=== PATIENT | female | born 1990 | race Two or more races ===

== ENCOUNTER 2024-10-27 19:40 | Inpatient (IN) | payer BC, OTHER ==
[2024-10-27] MEDS: SODIUM CHLORIDE 500 ML IV SCH (12:38)
[2024-10-27] MEDS: ONDANSETRON 4 MG/2 ML VIAL IVPB ONE ×2 (12:45→20:25)
[2024-10-27] MEDS: ACETAMINOPHEN 1000 MG/100 ML BAG IVPB ONE (13:20)
[2024-10-27 13:44] LABS: EPI CELLS >36 /uL (0-25.1); HYALINE CASTS 1 /uL (0-3.1); PH,URINE 6.5 (5.0-8.0); URINE APPEARANCE CLEAR; URINE BACTERIA 426 /uL (0-1359); URINE BILIRUBIN NEGATIVE (NEGATIVE); URINE COLOR YELLOW; URINE GLUCOSE (UA) NEGATIVE (NEGATIVE); URINE KETONE 1+ (NEGATIVE); URINE LEUK ESTERASE TRACE (NEGATIVE); URINE NITRITE NEGATIVE (NEGATIVE); URINE PROTEIN TRACE (NEGATIVE); URINE RBC 24 /uL (0-23.9); URINE UROBILINOGEN 0.2 mg/dL (0.2-1.0); URINE WBC 61 /uL (0-25.8)
[2024-10-27] MEDS: SODIUM CHLORIDE 1,000 ML IV SCH (14:00)
[2024-10-27 14:01] LABS: ABSOLUTE IMMATURE GRANULOCYTES 0.05 x10^3/uL (0.0-0.031); BASOPHILS # 0.02 x10^3/uL (0.01-0.08); EOSINOPHIL % 0.2 % (0.7-5.8); EOSINOPHILS # 0.02 x10^3/uL (0.04-0.36); HEMATOCRIT 32.7 % (34.1-44.9); MCHC 33.6 g/dl (32.2-35.5); MEAN CELL VOLUME 93.2 fl (79.4-94.8); MEAN PLT VOLUME 9.1 fl (9.4-12.3); MONOCYTE # 0.39 x10^3/uL (0.24-0.86); MONOCYTE % 3.7 % (4.7-12.5); PLATELET COUNT 170 x10^3/uL (182-369); RDW 12.8 % (12.1-16.8)
[2024-10-27 14:32] LABS: POTASSIUM 3.5 mmol/L (3.5-5.1)
[2024-10-27 14:34] LABS: ALBUMIN 2.6 g/dl (3.4-5.0); BLOOD UREA NITROGEN 11.5 mg/dL (7-18); CALCIUM 8.8 mg/dL (8.5-10.1)
[2024-10-27 14:37] LABS: CREATININE 0.6 mg/dL (0.55-1.3)
[2024-10-27 14:40] LABS: BILIRUBIN,TOTAL 0.5 mg/dL (0.2-1); TOT PROT 6.1 g/dl (6.4-8.2)
[2024-10-27] MEDS: FAMOTIDINE 20 MG/50 ML IVPB 20 MG/50 ML MG IVPB ONE (15:30)
[2024-10-27] MEDS: TERBUTALINE SULFATE 1 MG/1 ML VIAL SQ ONE (17:45)
[2024-10-27 18:25] VITALS: BMI 33.5
[~2024-10-27 19:40] MED LIST: ACETAMINOPHEN INJECTION 100 ML ONE; FAMOTIDINE 20 MG/50 ML IVPB 20 MG/50 ML MG IVPB ONE; ONDANSETRON 4 MG/2 ML VIAL ONE; TERBUTALINE SULFATE 1 MG/1 ML VIAL SQ ONE
[2024-10-27] MEDS ORDERED: ONDANSETRON 4 MG/2 ML VIAL ONE (20:11)
[2024-10-27 21:02] LABS: INR 1.07 (0.83-1.09); PROTHROMBIN TIME (PATIENT) 11.7 SEC (9.7-13.0)
[2024-10-27] MEDS ORDERED: morphine SULFATE 4 MG/ML VIAL ONE (21:03)
[2024-10-27] MEDS ORDERED: TERBUTALINE SULFATE 1 MG/1 ML VIAL SQ ONE (21:30)
[2024-10-27] MEDS: morphine SULFATE 4 MG/ML VIAL IM ONE (22:31)
[2024-10-27] MEDS ORDERED: AMPICILLIN SODIUM 1 GM VIAL ONE (23:16)
[2024-10-27] MEDS: AMPICILLIN - 1 GM in SODIUM CHLORIDE 100 ML IVPB SCH (23:19)
[2024-10-28] MEDS ORDERED: morphine SULFATE 4 MG/ML VIAL ONE ×2 (01:38→21:37)
[2024-10-28] MEDS: morphine SULFATE 4 MG/ML VIAL IM ONE (01:45)
[2024-10-28] MEDS ORDERED: ONDANSETRON 4 MG/2 ML VIAL ONE ×2 (02:49→19:30)
[2024-10-28] MEDS: ONDANSETRON 4 MG/2 ML VIAL IVPB ONE (02:52)
[2024-10-28] MEDS: CEFTRIAXONE 1 GM in DEXTROSE 5%-WATER - 50 ML IVPB ONE (03:46)
[2024-10-28] MEDS ORDERED: AMPICILLIN SODIUM 1 GM VIAL ONE (06:24)
[2024-10-28] MEDS ORDERED: SODIUM CHLORIDE 100 ML IVPB ONE (06:24)
[2024-10-28] MEDS ORDERED: ACETAMINOPHEN INJECTION 100 ML ONE ×3 (07:24→19:27)
[2024-10-28] MEDS: ACETAMINOPHEN 1000 MG/100 ML BAG IVPB ONE (07:25)
[2024-10-28 09:57] LABS: ABSOLUTE IMMATURE GRANULOCYTES 0.06 x10^3/uL (0.0-0.031); BASOPHILS # 0.03 x10^3/uL (0.01-0.08); EOSINOPHIL % 0.1 % (0.7-5.8); EOSINOPHILS # 0.01 x10^3/uL (0.04-0.36); HEMATOCRIT 31.3 % (34.1-44.9); HEMOGLOBIN 10.5 g/dL (11.2-15.7); MCHC 33.5 g/dl (32.2-35.5); MEAN CELL VOLUME 94.8 fl (79.4-94.8); MEAN PLT VOLUME 9.2 fl (9.4-12.3); MONOCYTE # 0.44 x10^3/uL (0.24-0.86); MONOCYTE % 4.6 % (4.7-12.5); PLATELET COUNT 173 x10^3/uL (182-369)
[2024-10-28 10:26] LABS: POTASSIUM 3.7 mmol/L (3.5-5.1)
[2024-10-28 10:29] LABS: CALCIUM 8.7 mg/dL (8.5-10.1)
[2024-10-28 10:30] LABS: ALBUMIN 2.4 g/dl (3.4-5.0); BLOOD UREA NITROGEN 9.1 mg/dL (7-18)
[2024-10-28 10:33] LABS: CREATININE 0.9 mg/dL (0.55-1.3)
[2024-10-28 10:34] LABS: BILIRUBIN,TOTAL 0.5 mg/dL (0.2-1)
[2024-10-28 10:39] LABS: TOT PROT 5.7 g/dl (6.4-8.2)
[2024-10-28] MEDS: ACETAMINOPHEN 1000 MG/100 ML BAG IVPB PRN (13:25)
[2024-10-28] MEDS: ONDANSETRON 4 MG/2 ML VIAL IVPUSH PRN (19:31)
[2024-10-28] MEDS: morphine SULFATE 4 MG/ML VIAL IVPB PRN (21:46)
[2024-10-28] MEDS ORDERED: MAGNESIUM 4GM/H20 - 4 GM/100 ML IVPB IVPB ONE (22:39)
[2024-10-28] MEDS ORDERED: BETAMET ACET/BETAMET NA PH 30 MG/5 ML VIAL ONE (22:39)
[2024-10-28] MEDS: MAGNESIUM 4GM/H20 - 4 GM/100 ML IVPB IVPB ONE (22:49)
[2024-10-28] MEDS: BETAMET ACET/BETAMET NA PH 30 MG/5 ML VIAL IM ONE (22:50)
[2024-10-28] MEDS ORDERED: MAGNESIUM SULFATE 20GM/500ML - 20 GM/500 ML INFUS.BAG ONE (23:15)
[2024-10-28] MEDS: MAGNESIUM SULFATE 20GM/500ML - 20 GM/500 ML INFUS.BAG IVPB SCH (23:20)
[2024-10-28] MEDS: SODIUM CHLORIDE 1,000 ML IV SCH (23:20)
[2024-10-28] MEDS ORDERED: FAMOTIDINE 20 MG/50 ML IVPB 20 MG/50 ML MG IVPB ONE (23:30)
[2024-10-28] MEDS: FAMOTIDINE 20 MG/50 ML IVPB 20 MG/50 ML MG IVPB ONE (23:40)
[2024-10-29] MEDS ORDERED: PROMETHAZINE HCL 25 MG/1 ML VIAL ONE (00:53)
[2024-10-29] MEDS ORDERED: BUTORPHANOL TARTRATE 2 MG/ML VIAL ONE (00:53)
[2024-10-29] MEDS: BUTORPHANOL TARTRATE 2 MG/ML VIAL IVPB ONE (01:00)
[2024-10-29] MEDS: PROMETHAZINE HCL 25 MG/1 ML VIAL IVPB ONE (01:00)
[2024-10-29] MEDS ORDERED: PROMETHAZINE HCL 25 MG/1 ML VIAL IVPB ONE (06:15)
[2024-10-29] MEDS ORDERED: BUTORPHANOL TARTRATE 2 MG/ML VIAL IVPB ONE (06:15)
[2024-10-29] MEDS ORDERED: MAGNESIUM SULFATE 20GM/500ML - 20 GM/500 ML INFUS.BAG ONE (08:19)
[2024-10-29] MEDS: CEFTRIAXONE 1 GM in DEXTROSE 5%-WATER - 50 ML IVPB SCH (10:35)
[2024-10-29 11:04] LABS: MAGNESIUM 6.4 mg/dL (1.8-2.4)
[2024-10-29] MEDS: FAMOTIDINE 20 MG TABLET PO SCH (17:10)
[2024-10-29] MEDS: BETAMET ACET/BETAMET NA PH 30 MG/5 ML VIAL IM ONE (22:00)
[2024-10-30 09:06] VITALS: RESP 18
[2024-10-30 10:47] VITALS: BP 124/73; PULSE 72; TEMP 97.6
== END 2024-10-30 12:20 | disposition home or self-care (01) | DRG 832 ==
LOC: JDEL 19:40 → J3WN 21:00 → JLDR 22:55 → OBSVTOIN 10-28 08:54
PROVIDERS: ADMIT Obstetrics & Gynecology; ATTEND Obstetrics & Gynecology
DX: O60.03 Preterm labor without delivery, third trimester (principal); N13.2 Hydronephrosis with renal and ureteral calculous obstruction; O99.213 Obesity complicating pregnancy, third trimester; Z3A.33 33 weeks gestation of pregnancy; O26.893 Other specified pregnancy related conditions, third trimester; M54.9 Dorsalgia, unspecified
CPT/HCPCS: 36415; 74181-TC; 76775-TC; 76856-TC; 80053; 81003; 82962; 83735; 85025; 85610; 86780; 86850; 86900; 86901; 87086; 96372; G0378